=== PATIENT | male | born 1945 | race Caucasian/White ===

== ENCOUNTER 2016-11-07 10:23 | Emergency (ER) | payer OTHER, BC ==
[~2016-11-07] VITALS: Ht 180.3 cm; Wt 107.5 kg
[~2016-11-07 10:23] MED LIST: ALLEGRA-D 241 TABLET PO; ASPIRIN325 MG PO; COLACE100 MG PO; CRESTOR20 MG PO; FLOMAX0.4 MG PO; LOPRESSOR50 MG PO; SUPER B COMP1 TABLET PO; TOVIAZ8 MG PO; TYLENOL REGULA325 MG PO; URIBEL CAPSULE1 EACH PO; VASERETIC 101 TABLET PO; VITAMIN C1000 MG PO; VITAMIN D31000 UNI2 PO; VITAMIN E400 UNIT PO
[2016-11-07 11:23] LABS: HEMATOCRIT 42.9 % (38.0-50.0); MCH 32.3 PG (29.0-34.0); MCHC 34.7 G/DL (30.0-36.0); MCV 93.1 FL (86-99); MEAN PLAT.VOLUME 9.5 uM^3 (9.0-12.4); PLATELET COUNT 230 K/uL (156-360); RBC DIS.WIDTH-CV 13.7 % (11.8-14.6); RBC DIS.WIDTH-SD 45.2 % (39-53); RED BLOOD COUNT 4.61 M/uL (4.00-5.50); WHITE BLOOD COUNT 11.5 K/uL (4.1-10.2)
[2016-11-07 11:34] LABS: CHLORIDE 109 mEq/L (99-109); POTASSIUM 4.3 mEq/L (3.7-5.4); SODIUM 143 mEq/L (136-147)
[2016-11-07 11:36] LABS: GLUCOSE 184 mg/dL (70-99)
[2016-11-07 11:37] LABS: ANION GAP 13 MEQ/L (2-14)
[2016-11-07 11:39] LABS: ALKALINE PHOSPHATASE 76 IU/L (3-129)
[2016-11-07 11:40] LABS: GFR ESTIMATE (CALCULATED) 46 mL/min/
[2016-11-07 11:41] LABS: DIRECT BILIRUBIN 0.3 mg/dL (0.0-0.3); UREA NITROGEN (BUN) 20 mg/dL (9-23)
[2016-11-07 11:43] LABS: LIPASE 28 U/L (1.0-51.0)
[2016-11-07 12:07] LABS: ADD MIUA? YES; BILIRUBIN NEGATIVE; BLOOD LARGE; COLOR YELLOW ((YELLOW)); GLUCOSE (STRIP) NEGATIVE; KETONES 5; LEUKOCYTES NEGATIVE; NITRITE NEGATIVE; PROTEIN (STRIP) 30; UROBILINOGEN 0.2 MG/DL (0.2-1.0)
[2016-11-07 12:15] LABS: BACTERIA NONE SEEN /HPF; CALCIUM OXALATE CRYSTALS 3+ /HPF; EPITHELIAL CELLS RARE /HPF; MUCUS TRACE /LPF; RED BLOOD CELLS TNTC /HPF (0-5); UCUL ADDED? NO; WHITE BLOOD CELLS 0-5 /HPF (0-5)
[2016-11-07 12:16] LABS: CRYSTALS PRESENT
[2016-11-07] MEDS ORDERED: FLOMAX0.4 MG PO (12:44)
[2016-11-07] MEDS ORDERED: ZOFRAN4 MG PO (12:44)
[2016-11-07] MEDS ORDERED: PERCOCET 5/31 TABLET PO (12:44)
[2016-11-07 14:30] VITALS: BP 105/69
[2016-11-09] MEDS ORDERED: FLOMAX0.4 MG PO (14:02)
[2016-11-09] MEDS ORDERED: ATIVAN0.5 MG PO (14:03)
[2016-11-09] MEDS ORDERED: CIPRO500 MG PO (14:07)
== END 2016-11-07 14:35 | disposition home or self-care (01) ==
LOC: EME 10:23
PROVIDERS: Emergency Medicine
DX: N20.0 Calculus of kidney (principal); E78.5 Hyperlipidemia, unspecified; I10 Essential (primary) hypertension; Z85.46 Personal history of malignant neoplasm of prostate; Z87.442 Personal history of urinary calculi; Z95.1 Presence of aortocoronary bypass graft; Z98.61 Coronary angioplasty status; Z95.2 Presence of prosthetic heart valve; Z79.82 Long term (current) use of aspirin
CPT/HCPCS: 74176; 80048; 80076; 81003; 83690; 85027; 99281; 99285; J1885; J2270; J2405; J7030

== ENCOUNTER → 2016-11-09 | Outpatient (CLI) | payer MEDICARE, BC ==
[~2016-11-09] MED LIST changes: +ATIVAN0.5 MG PO; +CIPRO500 MG PO; +PERCOCET 5/31 TABLET PO; +ZOFRAN4 MG PO
== END | disposition home or self-care (01) ==
LOC: CDC 10:36
DX: R94.31 Abnormal electrocardiogram [ECG] [EKG] (principal); N20.1 Calculus of ureter
CPT/HCPCS: 93000

== ENCOUNTER 2016-11-11 05:17 | Day surgery (SDC) | payer OTHER, BC ==
[~2016-11-11] VITALS: Ht 180.3 cm; Wt 106.0 kg
[2016-11-11 06:03] VITALS: BP 131/79
[2016-11-11 09:25] VITALS: BP 141/77
[2016-11-11 10:12] VITALS: BP 145/67
== END 2016-11-11 10:31 | disposition home or self-care (01) ==
LOC: SDC
DX: N13.2 Hydronephrosis with renal and ureteral calculous obstruction (principal); Z85.46 Personal history of malignant neoplasm of prostate; Z92.3 Personal history of irradiation; I10 Essential (primary) hypertension
CPT/HCPCS: 74420; 87070; 87075; 87086; 87205; C1876; J0690; J1580; J2250; J2405; J3010

== ENCOUNTER 2016-12-17 06:21 | Day surgery (SDC) | payer OTHER, BC ==
[~2016-12-17] VITALS: Ht 180.3 cm; Wt 103.0 kg
[2016-12-17 07:20] VITALS: BP 147/58
[2016-12-17 11:05] VITALS: BP 150/82
[2016-12-17 11:57] VITALS: BP 140/82
== END 2016-12-17 12:19 | disposition home or self-care (01) ==
LOC: SDC 06:21
PROVIDERS: Urology
DX: N20.1 Calculus of ureter (principal); Z85.46 Personal history of malignant neoplasm of prostate; Z92.3 Personal history of irradiation; E78.5 Hyperlipidemia, unspecified; I10 Essential (primary) hypertension; F41.9 Anxiety disorder, unspecified; Z95.0 Presence of cardiac pacemaker; Z95.5 Presence of coronary angioplasty implant and graft; Z82.0 Family history of epilepsy and other diseases of the nervous system; Z80.9 Family history of malignant neoplasm, unspecified
CPT/HCPCS: 74000; 82365 90; C1876; J0131; J0690; J1100; J1170; J2250; J2405; J7050